=== PATIENT | female | born 1955 | race Caucasian/White ===

== ENCOUNTER 2017-10-05 11:44 | Emergency (ER) | payer OTHER ==
[~2017-10-05] VITALS: Ht 157.5 cm; Wt 115.5 kg
[2017-10-05] MEDS ORDERED: NORCO 5/3251 TABLET PO (13:24)
[2017-10-05] MEDS ORDERED: AUGMENTIN875 MG PO (13:24)
[2017-10-05 13:48] VITALS: BP 145/102
== END 2017-10-05 13:49 | disposition home or self-care (01) ==
LOC: EME 11:44
DX: S51.812A Laceration without foreign body of left forearm, initial encounter (principal); Y04.1XXA Assault by human bite, initial encounter; Y93.89 Activity, other specified; Y99.0 Civilian activity done for income or pay; Y92.199 Unspecified place in other specified residential institution as the place of occurrence of the external cause; J44.9 Chronic obstructive pulmonary disease, unspecified; E78.5 Hyperlipidemia, unspecified; F17.200 Nicotine dependence, unspecified, uncomplicated; Z88.0 Allergy status to penicillin
CPT/HCPCS: 99281; 99284